=== PATIENT | male | born 1985 | race Caucasian/White ===

== ENCOUNTER 2017-09-27 08:58 | Emergency (ER) | payer SELFPAY ==
[~2017-09-27] VITALS: Ht 167.6 cm; Wt 75.0 kg
[2017-09-27 09:16] VITALS: BP 143/79
[2017-09-27] MEDS ORDERED: IBUPROFEN 800 MG TABLET PO ONE (10:15)
[2017-09-27] MEDS ORDERED: BACITRACIN 0.9 GM PACKET OINTMENT TP ONE (11:00)
== END 2017-09-27 11:39 | disposition home or self-care (01) ==
LOC: EMS 09:00
DX: S61.002A Unspecified open wound of left thumb without damage to nail, initial encounter (principal); R03.0 Elevated blood-pressure reading, without diagnosis of hypertension; W23.0XXA Caught, crushed, jammed, or pinched between moving objects, initial encounter; Y93.89 Activity, other specified; Y92.89 Other specified places as the place of occurrence of the external cause; Y99.8 Other external cause status
CPT/HCPCS: 29130; 73140; 96372; 99284; J0690